=== PATIENT | male | born 1955 | race Caucasian/White ===

== ENCOUNTER → 2019-01-16 16:37 | Outpatient (CLI) | payer SELFPAY ==
[2019-01-16 16:59] LABS: INR 2.74 (0.85-1.17); PROTIME 28.3 SECONDS (11.6-15.0)
== END | disposition home or self-care (01) ==
LOC: D.LABREF 16:37
PROVIDERS: ATTEND Internal Medicine Cardiovascular Disease
DX: I50.9 Heart failure, unspecified (principal)

== ENCOUNTER → 2019-01-23 11:28 | Outpatient (CLI) | payer BC ==
[2019-01-23 11:58] LABS: INR 2.34 (0.85-1.17)
== END | disposition home or self-care (01) ==
LOC: D.LABREF 11:28
PROVIDERS: ATTEND Internal Medicine Cardiovascular Disease
DX: I50.22 Chronic systolic (congestive) heart failure (principal)

== ENCOUNTER → 2019-01-30 10:14 | Outpatient (CLI) | payer BC ==
[2019-01-30 11:00] LABS: INR 1.78 (0.85-1.17); PROTIME 20.1 SECONDS (11.6-15.0)
== END | disposition home or self-care (01) ==
LOC: D.LABREF 10:14
PROVIDERS: ATTEND Internal Medicine Cardiovascular Disease
DX: I50.22 Chronic systolic (congestive) heart failure (principal)

== ENCOUNTER → 2019-02-06 10:36 | Outpatient (CLI) | payer BC ==
[2019-02-06 13:06] LABS: INR 1.36 (0.85-1.17); PROTIME 16.3 SECONDS (11.6-15.0)
== END | disposition home or self-care (01) ==
LOC: D.LABREF 10:36
PROVIDERS: ATTEND Internal Medicine Cardiovascular Disease
DX: I50.22 Chronic systolic (congestive) heart failure (principal)

== ENCOUNTER → 2019-02-13 10:14 | Outpatient (CLI) | payer BC ==
[2019-02-13 10:48] LABS: INR 1.9 (0.85-1.17); PROTIME 21.1 SECONDS (11.6-15.0)
== END | disposition home or self-care (01) ==
LOC: D.LABREF 10:14
PROVIDERS: ATTEND Internal Medicine Cardiovascular Disease
DX: I50.22 Chronic systolic (congestive) heart failure (principal)

== ENCOUNTER → 2019-02-20 10:20 | Outpatient (CLI) | payer BC ==
[2019-02-20 11:33] LABS: INR 1.96 (0.85-1.17); PROTIME 21.6 SECONDS (11.6-15.0)
== END | disposition home or self-care (01) ==
LOC: D.LABREF 10:20
PROVIDERS: ATTEND Internal Medicine Cardiovascular Disease
DX: I50.22 Chronic systolic (congestive) heart failure (principal)

== ENCOUNTER → 2019-02-27 10:50 | Outpatient (CLI) | payer BC ==
[2019-02-27 11:21] LABS: INR 1.9 (0.85-1.17); PROTIME 21.1 SECONDS (11.6-15.0)
== END | disposition home or self-care (01) ==
LOC: D.LABREF 10:50
PROVIDERS: ATTEND Internal Medicine Cardiovascular Disease
DX: I50.22 Chronic systolic (congestive) heart failure (principal)

== ENCOUNTER → 2019-03-06 11:04 | Outpatient (CLI) | payer BC ==
[2019-03-06 11:59] LABS: INR 1.7 (0.85-1.17); PROTIME 19.4 SECONDS (11.6-15.0)
== END | disposition home or self-care (01) ==
LOC: D.LABREF 11:04
PROVIDERS: ATTEND Internal Medicine Cardiovascular Disease
DX: I50.22 Chronic systolic (congestive) heart failure (principal)

== ENCOUNTER → 2019-03-08 13:09 | Outpatient (CLI) | payer BC ==
[2019-03-08 14:37] LABS: APTT 48.1 SECONDS (22.8-39.4); INR 1.92 (0.85-1.17); PROTIME 21.3 SECONDS (11.6-15.0)
== END | disposition home or self-care (01) ==
LOC: D.LABREF 13:09
PROVIDERS: ATTEND Internal Medicine Cardiovascular Disease
DX: I50.22 Chronic systolic (congestive) heart failure (principal)

== ENCOUNTER → 2019-03-10 10:39 | Outpatient (CLI) | payer BC ==
[2019-03-10 12:31] LABS: INR 1.79 (0.85-1.17); PROTIME 20.1 SECONDS (11.6-15.0)
== END | disposition home or self-care (01) ==
LOC: D.LABREF 10:39
PROVIDERS: ATTEND Internal Medicine Cardiovascular Disease
DX: I50.22 Chronic systolic (congestive) heart failure (principal)

== ENCOUNTER → 2019-03-13 10:37 | Outpatient (CLI) | payer BC ==
[2019-03-13 11:36] LABS: INR 2.12 (0.85-1.17)
== END | disposition home or self-care (01) ==
LOC: D.LABREF 10:37
PROVIDERS: ATTEND Internal Medicine Cardiovascular Disease
DX: I50.22 Chronic systolic (congestive) heart failure (principal)